=== PATIENT | female | born 1955 | race Caucasian/White ===

== ENCOUNTER 2023-08-15 12:32 | Emergency (ER) | payer MEDICARE, OTHER, SELFPAY ==
--- NOTE | ~2023-08-15 | XR_ITS ---
EXAMINATION: XR cervical spine 4-5V DATE: 08/15/2023 13:23 INDICATION: Cervical spine fracture. TECHNIQUE: 5 views of the cervical spine on 6 radiographs were obtained. COMPARISON: None. FINDINGS: Bone alignment is normal. Vertebral body heights are normal. There is mildly decreased disc height at C4-C5, moderately decreased disc height at C5-C6, and severely decreased disc height at C6 -C7 and C7-T1. There are bridging endplate osteophytes at C6-C7. There is multilevel facet joint oste oarthritis, severe bilaterally at C3-C4 and C4-C5. There is mild central canal stenosis at C4-C5, C5- C6, C6-C7, and C7-T1. No prevertebral soft tissue swelling. IMPRESSION: 1. Severe cervical spondylosis. Reviewed, dictated and finalized at location A. [facility] [employer]
[2023-08-15 12:42] VITALS: BP 141/70; PULSE 103; RESP 18; TEMP 36.6; O2SAT 99
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
[2023-08-15 12:57] VITALS: BP 141/70; PULSE 103; RESP 18; TEMP 36.6; O2SAT 99
== END 2023-08-15 13:50 | disposition home or self-care (01) ==
PROVIDERS: Emergency Provider Registered Nurse; PCP Family Medicine
DX: M47.812 Spondylosis without myelopathy or radiculopathy, cervical region (principal); S16.1XXA Strain of muscle, fascia and tendon at neck level, initial encounter; G89.29 Other chronic pain; V89.2XXD Person injured in unspecified motor-vehicle accident, traffic, subsequent encounter
CPT/HCPCS: 72050; 99213; G0463